=== PATIENT | female | born 1985 | race Caucasian/White ===

== ENCOUNTER 2017-09-10 17:26 | Emergency (ER) | payer BC ==
[2017-09-10 18:32] LABS: ALT (SGPT) 9 U/L (8-55); AST (SGOT) 15 U/L (5-34); Albumin 4.6 g/dL (3.5-5.0); Alkaline Phosphatase 34 U/L (40-150); Anion Gap 15 mmol/L (10-20); BUN (Urea Nitrogen) 6 mg/dL (7.0-18.7); Bilirubin, Total 0.9 mg/dL (0.2-1.2); Calc. Creatinine Clearance 0 mL/min (70-130); Calcium 9.9 mg/dL (7.8-10.44); Carbon Dioxide 24 mmol/L (22-29); Chloride 103 mmol/L (98-107); Estimated GFR-MDRD Greater than 90; Globulin 3.1 g/dL (2.4-3.5); Glucose 92 mg/dL (70-105); Potassium 4.2 mmol/L (3.5-5.1); Protein, Total 7.7 g/dL (6.0-8.3); Sodium 138 mmol/L (136-145)
== END 2017-09-10 20:40 | disposition home or self-care (01) ==
LOC: ERS 17:26
DX: Z77.098 Contact with and (suspected) exposure to other hazardous, chiefly nonmedicinal, chemicals (principal)
CPT/HCPCS: 36415; 80053; 99283

== ENCOUNTER 2017-09-11 22:57 | Emergency (ER) | payer BC ==
[2017-09-11 23:51] LABS: Anion Gap 10 mmol/L (10-20); BUN (Urea Nitrogen) 9 mg/dL (7.0-18.7); Calc. Creatinine Clearance 0 mL/min (70-130); Calcium 9.7 mg/dL (7.8-10.44); Carbon Dioxide 29 mmol/L (22-29); Chloride 104 mmol/L (98-107); Estimated GFR-MDRD 85; Glucose 119 mg/dL (70-105); Potassium 3.7 mmol/L (3.5-5.1); Sodium 139 mmol/L (136-145)
[2017-09-12] MEDS ORDERED: CALCIUM GLUCONATE 25 GM TUBE ONE (00:16)
== END 2017-09-12 01:53 | disposition home or self-care (01) ==
LOC: ERS 22:57
DX: Z77.098 Contact with and (suspected) exposure to other hazardous, chiefly nonmedicinal, chemicals (principal)
CPT/HCPCS: 36415; 80048; 99283